=== PATIENT | male | born 1950 | race African-American/Black ===

== ENCOUNTER 2017-01-21 13:03 | Emergency (ER) | payer OTHER, BC ==
[~2017-01-21] VITALS: Ht 172.7 cm; Wt 103.0 kg
[2017-01-21 13:49] LABS: HEMATOCRIT 51.2 % (38.0-50.0); MCH 31.5 PG (29.0-34.0); MCHC 33.2 G/DL (30.0-36.0); MCV 94.8 FL (86-99); MEAN PLAT.VOLUME 9.3 uM^3 (9.0-12.4); PLATELET COUNT 263 K/uL (156-360); RBC DIS.WIDTH-CV 12.2 % (11.8-14.6); RBC DIS.WIDTH-SD 42.7 % (39-53); WHITE BLOOD COUNT 3.9 K/uL (4.1-10.2)
[2017-01-21 13:57] LABS: CHLORIDE 105 mEq/L (99-109); POTASSIUM 4.5 mEq/L (3.7-5.4); SODIUM 140 mEq/L (136-147)
[2017-01-21 13:59] LABS: GLUCOSE 125 mg/dL (70-99)
[2017-01-21 14:01] LABS: ANION GAP 10 MEQ/L (2-14); TOTAL BILIRUBIN 1.3 mg/dL (0.0-1.0)
[2017-01-21 14:03] LABS: ALKALINE PHOSPHATASE 85 IU/L (3-129); GFR ESTIMATE (CALCULATED) > 59 mL/min/
[2017-01-21 14:04] LABS: UREA NITROGEN (BUN) 7 mg/dL (9-23)
[2017-01-21 14:09] LABS: TROP-I INTERPRETATION NEGATIVE; TROPONIN-I 0.01 ng/mL (0.0-0.30)
[2017-01-21 14:46] VITALS: BP 147/74
== END 2017-01-21 15:17 | disposition home or self-care (01) ==
LOC: EME 13:03
PROVIDERS: Emergency Medicine
DX: I47.1 Supraventricular tachycardia (principal); Z85.46 Personal history of malignant neoplasm of prostate
CPT/HCPCS: 80053; 84484; 85027; 93005; 99281; 99285; J7030